=== PATIENT | female | born 1990 | race African-American/Black ===

== ENCOUNTER → 2017-02-23 | Outpatient (CLI) | payer MEDICAID | LOC: OD 10:59 | PROVIDERS: ATTEND Nurse Practitioner Acute Care | DX: R68.89 Other general symptoms and signs (principal) | CPT/HCPCS: 87804 ==

== ENCOUNTER 2017-08-26 18:28 | Emergency (ER) | payer MEDICAID ==
[2017-08-26] MEDS ORDERED: AMOXICILLIN TRIHYDRATE 500 MG CAPSULE PO ONE (20:05)
[2017-08-26] MEDS ORDERED: AMOXICILLIN TR/POT CLAVULANATE 500-125 MG TAB PO ONE (20:05)
[2017-08-26] MEDS ORDERED: DIPH/PERTUSS(ACELL)/TETANUS VAC/PF 0.5 ML SYR (>=10YO) IM ONE (20:05)
--- NOTE | 2017-08-26 20:08 | ER Document Report ---
HPI - HPI Patient complains to provider of: Dog bite Pain Level: 2 Context: Patient is a 26-year-old female comes emergency department for chief complaint of dog bite. She states she was bitten on the left calf yesterday, patient states that she was walking past and other residents apartment when they are beagle jumped out and bit her on the leg. Patient has met the dog in the past. Patient states she is not up-to-date on her tetanus within 5 years. She denies any other injuries or any complaints. She denies any daily medications, denies medical history other than , LMP within the past month. - REPRODUCTIVE Reproductive: DENIES: : Past Medical History - General Information source: Patient - Social History Smoking Status: Never Smoker Frequency of alcohol use: None Drug Abuse: None Lives with: Family Family History: Reviewed & Not Pertinent Patient has suicidal ideation: No Patient has homicidal ideation: No - Medical History Medical History: Negative - Past Medical History Cardiac Medical History: Pulmonary Medical History: Neurological Medical History: Renal/ Medical History: Denies: Hx Peritoneal Dialysis GI Medical History: Denies: Hx Gastroesophageal Reflux Disease, Hx Hiatal Hernia , Hx Ulcer Musculoskeltal Medical History: Infectious Medical History: Past Surgical History: Reports: Hx Section - x2 - Immunizations Hx Diphtheria, Pertussis, Tetanus Vaccination: Yes Vertical Provider Document - CONSTITUTIONAL General Appearance: WD/WN, No Apparent Distress - INFECTION CONTROL TRAVEL OUTSIDE OF THE [place] IN LAST 30 DAYS: No - HEENT HEENT: Atraumatic, Normocephalic - NECK Neck: Normal Inspection - RESPIRATORY Respiratory: Breath Sounds Normal, No Respiratory Distress - CARDIOVASCULAR Cardiovascular: Regular Rate, Regular Rhythm - GI/ABDOMEN Gastrointestinal: Abdomen Soft, Abdomen Non-Tender - BACK Back: Normal Inspection - MUSCULOSKELETAL/EXTREMETIES Musculoskeletal/Extremeties: Tender - There are 2 puncture wounds over the left mid calf, consistent with dog bite, no swelling, no abnormal erythema or heat, no rigidity of the muscle, normal lower extremity exam otherwise including normal distal neurovascular exam Course - Re-evaluation Re-evalutation: Updated tetanus, starting patient on Augmentin, discussed rabies vaccine, however after long discussion patient did decline this. Advised to have the dog quarantined. Discussed monitoring and return precautions in detail. Patient states understanding and agreement. - Vital Signs Vital signs: Temp Pulse Resp BP Pulse Ox 98.4 F 92 16 141/86 H 100 08/26/17 18:44 08/26/17 18:44 08/26/17 18:44 08/26/17 18:44 08/26/17 18:44 Discharge - Discharge Clinical Impression: Dog bite Qualifiers: Encounter type: initial encounter Qualified Code(s): W54.0XXA - Bitten by dog, initial encounter Condition: Stable Disposition: HOME, SELF-CARE Additional Instructions: Your tetanus has been updated and you have been started on Augmentin antibiotic to an infection of the dog bite wound. You can also take anti-inflammatories such as ibuprofen for muscle soreness. I recommend taking a probiotic source while on the Augmentin. Follow-up with primary care. Return if you worsen in anyway including developing or spreading redness at the wound, discolored discharge, fever, swelling, or any other concerning or worsening symptoms. Prescriptions: Amox Tr/Potassium Clavulanate [Augmentin 875-125 Tablet] 1 tab PO BID 7 Days tablet Forms: Return to Work Referrals: RANDALL LOU CONSULTING IT ARCHITECT-C [Primary Care Provider] - Follow up as needed
[2017-08-26 20:19] VITALS: BP 144/87
== END 2017-08-26 21:00 | disposition home or self-care (01) ==
LOC: ER 18:28
DX: S81.852A Open bite, left lower leg, initial encounter (principal); W54.0XXA Bitten by dog, initial encounter
CPT/HCPCS: 99283; 90471; 90715; J3490

== ENCOUNTER 2019-12-04 16:14 | Emergency (ER) | payer OTHER, MEDICAID ==
[2019-12-04] MEDS ORDERED: CYCLOBENZAPRINE HCL 10 MG TABLET PO ONE (18:28)
[2019-12-04] MEDS ORDERED: IBUPROFEN 800 MG TABLET PO ONE (18:28)
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
[2019-12-04 19:13] VITALS: BP 124/84
== END 2019-12-04 19:13 | disposition home or self-care (01) ==
LOC: ER 16:14
DX: M79.18 Myalgia, other site (principal); V49.50XA Passenger injured in collision with unspecified motor vehicles in traffic accident, initial encounter
CPT/HCPCS: 99283